=== PATIENT | female | born 1960 | race Two or more races ===

== ENCOUNTER 2024-05-11 14:41 | Outpatient (CLI) | payer OTHER | END 2024-05-11 16:01 | disposition home or self-care (01) | LOC: RAD 14:41 | PROVIDERS: ATTEND Orthopaedic Surgery | DX: S42.252A Displaced fracture of greater tuberosity of left humerus, initial encounter for closed fracture (principal) ==

== ENCOUNTER 2024-05-12 08:34 | Outpatient (CLI) | payer OTHER | END 2024-05-12 08:36 | disposition home or self-care (01) | LOC: RAD 08:34 | PROVIDERS: ATTEND Orthopaedic Surgery | DX: M25.562 Pain in left knee (principal) ==

== ENCOUNTER 2024-06-01 07:31 | Outpatient (CLI) | payer OTHER | END 2024-06-01 07:39 | disposition home or self-care (01) | LOC: RAD 07:31 | PROVIDERS: ATTEND Orthopaedic Surgery | DX: M17.12 Unilateral primary osteoarthritis, left knee (principal) ==

== ENCOUNTER 2024-06-29 07:33 | Outpatient (CLI) | payer OTHER | END 2024-06-29 07:43 | disposition home or self-care (01) | LOC: RAD 07:33 | PROVIDERS: ATTEND Orthopaedic Surgery | DX: S42.242D 4-part fracture of surgical neck of left humerus, subsequent encounter for fracture with routine healing (principal) ==

== ENCOUNTER → 2024-07-03 08:50 | Outpatient (CLI) | payer OTHER ==
[2024-07-03 09:57] LABS: HEMATOCRIT 38.4 % (36.0-45.00); HEMOGLOBIN 13.2 g/dL (12.0-15.00); MEAN CELL VOLUME 87.5 fL (80.00-100.00); MEAN CORPUSCULAR HGB CONC 34.3 g/dl (32.0-36.0); PLATELET COUNT 402 K/uL (150-450); RED BLOOD COUNT 4.39 M/uL (4.00-6.00); RED CELL DISTRIBUTION WIDTH 13.4 % (11.5-14.5)
[2024-07-03 11:43] LABS: ALBUMIN 3.8 gm/dL (3.4-5.0); BILIRUBIN TOTAL 0.34 mg/dL (0.3-1.2); CALCIUM 9.4 mg/dL (8.5-10.1); CHOL HDL RATIO 3.3 (0-5.0); CREATININE SERUM 0.6 mg/dL (0.55-1.02); GFR 100.64; GLOBULINA 4.3 G/DL (2.4-3.5); POTASSIUM 4.44 mEq/L (3.5-5.1); TOTAL PROTEIN 8.1 gm/dL (6.4-8.2); TSH 2.93 uIU/mL (0.358-3.74)
[2024-07-03 12:19] LABS: VITAMIN D3 25 HYDROXY 32.78 ng/ml (30-120)
== END | disposition home or self-care (01) ==
LOC: LAB 08:50
DX: D51.9 Vitamin B12 deficiency anemia, unspecified (principal); E03.8 Other specified hypothyroidism; E66.9 Obesity, unspecified; E55.9 Vitamin D deficiency, unspecified

== ENCOUNTER 2024-08-26 10:41 | Outpatient (CLI) | payer OTHER | END 2024-08-26 10:57 | disposition home or self-care (01) | LOC: RAD 10:41 | PROVIDERS: ATTEND Physical Medicine & Rehabilitation | DX: M25.512 Pain in left shoulder (principal) ==